=== PATIENT | male | born 1945 | race Caucasian/White ===

== ENCOUNTER 2018-05-20 17:45 | Emergency (ER) | payer MEDICARE, MEDICAID ==
[2018-05-20 18:00] VITALS: BP 128/80
[2018-05-20 18:05] LABS: CHLORIDE,CL 105 mEq/L (98-106); SODIUM,NA 140 mEq/L (136-145)
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
[2018-05-20] MEDS ORDERED: LORazepam 2 MG/ML Syringe ONE (18:50)
== END 2018-05-20 19:00 ==
LOC: CC.ED 17:45
DX: F03.91 Unspecified dementia, unspecified severity, with behavioral disturbance (principal); Z79.82 Long term (current) use of aspirin; Z79.899 Other long term (current) drug therapy; Z86.73 Personal history of transient ischemic attack (TIA), and cerebral infarction without residual deficits
CPT/HCPCS: 36415; 71045; 80053; 85025; 86140; 99285